=== PATIENT | male | born 1950 | race Caucasian/White ===

== ENCOUNTER 2016-07-05 07:43 | Day surgery (SDC) | payer OTHER ==
[~2016-07-05] VITALS: Ht 177.8 cm; Wt 84.1 kg
[~2016-07-05 07:43] MED LIST: 24 HOUR ALLER15.8 ML BOTH NARES; 24HOUR ALLERGY10 MG PO; AMLODIPINE BESYL5 MG PO; AMOXICILLIN875 MG PO; ANTIVERT12.5 MG PO; ANTIVERT25 MG PO; ASPIR 8181 M1 PO; ASPIRIN325 MG PO; ASPIRIN81 M2 PO; ATORVASTATIN CA20 MG PO; AUGMENTIN875 MG PO; AVENTYL,PAMELOR10 MG PO; B COMPLETE1 EACH PO; B-121000 MC2 PO; BACLOFEN10 MG PO; BLOOD PRESSURE; CLINDAMYCIN HC300 MG PO; CLOPIDOGREL75 MG PO; CYANOCOBALAM1000 MCG PO; CYCLOBENZAPRINE10 MG PO; DOXYCYCLINE HY100 MG PO; Ecotrin PO; FLEXERIL10 MG PO; FLONASE ALLERG9.9 ML BOTH NARES; FLONASE16 G1 BOTH NARES; FLONASE16 G1 RIGHT NARE; GABAPENTIN300 MG PO; HYDROCHLOROTH12.5 M3 PO; IBUPROFEN600 MG PO; LIDOCAINE700 MG TD; LIDODERM 5% P1 PATCH TD; LIPITOR20 MG; LIPITOR20 MG PO; MECLIZINE HCL25 MG PO; MOTRIN600 MG PO; NAPROXEN500 M1 PO; NORVASC5 MG PO; OXYCODONE-APAP1 EAC6 PO; PERCOCET 5/31 TABLET PO; PERCOCET 7.51 TABLET PO; PLAVIX75 MG PO; PREDNISONE20 MG PO; PROAIR HFA8.5 GM IH; Remove Lidoderm Patch TD; TYLENOL WITH C1 EACH PO; Ultram PO; VALTREX50 MG/ML PO; VITAMIN B-12500 MC3 PO; VITAMIN B12 100MCG PO; Zestril,Prinivil PO
== END 2016-07-05 10:00 | disposition home or self-care (01) ==
LOC: PAIN 07:43 → SDC 08:30 → PAIN 10:00
PROC: 015B3ZZ Destruction of Lumbar Nerve, Percutaneous Approach (ICD-10-PCS; principal; 2016-07-05)
DX: M47.896 Other spondylosis, lumbar region (principal); M51.26 Other intervertebral disc displacement, lumbar region; M54.16 Radiculopathy, lumbar region; M46.1 Sacroiliitis, not elsewhere classified; M79.1 Myalgia; M48.06 Spinal stenosis, lumbar region; M50.30 Other cervical disc degeneration, unspecified cervical region; Z79.899 Other long term (current) drug therapy
CPT/HCPCS: J1030; J2250; J3010; S0020

== ENCOUNTER 2016-07-14 01:20 | Observation (INO) | payer OTHER ==
[~2016-07-14] VITALS: Ht 177.8 cm; Wt 98.5 kg
[2016-07-14 02:05] LABS: HEMATOCRIT 43.9 % (38.0-50.0); MCV 90.7 FL (86-99); MEAN PLAT.VOLUME 9.9 uM^3 (9.0-12.4); PLATELET COUNT 448 K/uL (156-360); RBC DIS.WIDTH-CV 12.9 % (11.8-14.6); RBC DIS.WIDTH-SD 41.5 % (39-53); RED BLOOD COUNT 4.84 M/uL (4.00-5.50); WHITE BLOOD COUNT 9.8 K/uL (4.1-10.2)
[2016-07-14 02:10] LABS: CHLORIDE 107 mEq/L (99-109); POTASSIUM 3.6 mEq/L (3.7-5.4); SODIUM 140 mEq/L (136-147)
[2016-07-14 02:12] LABS: GLUCOSE 145 mg/dL (70-99)
[2016-07-14 02:13] LABS: ANION GAP 9 MEQ/L (2-14)
[2016-07-14 02:15] LABS: GFR ESTIMATE (CALCULATED) > 59 mL/min/
[2016-07-14 02:16] LABS: UREA NITROGEN (BUN) 10 mg/dL (9-23)
[2016-07-14 02:20] LABS: TROP-I INTERPRETATION NEGATIVE; TROPONIN-I < 0.01 ng/mL (0.0-0.30)
[2016-07-14 08:24] LABS: HDL CHOLESTEROL 60 MG/DL (Desirable>=40); LDL CHOLESTEROL 47 mg/dL (Desirable<100); NON-HDL CHOLESTEROL 53 mg/dL (Desirable<160); TOTAL CHOLESTEROL 113 mg/dL (Desirable<200); TRIGLYCERIDES 31 MG/DL (Normal: <150)
[2016-07-14 08:38] LABS: TROP-I INTERPRETATION NEGATIVE; TROPONIN-I < 0.01 ng/mL (0.0-0.30)
[2016-07-14 08:49] VITALS: BP 161/80
[2016-07-14 11:43] LABS: INFLUENZA A VIRAL ANTIGEN NEGATIVE; INFLUENZA B VIRAL ANTIGEN NEGATIVE
[2016-07-14 12:45] VITALS: BP 155/75
[2016-07-14 16:00] LABS: TROP-I INTERPRETATION NEGATIVE; TROPONIN-I < 0.01 ng/mL (0.0-0.30)
[2016-07-14] MEDS ORDERED: NORVASC5 MG PO (16:22)
[2016-07-14 16:46] VITALS: BP 145/60
[2016-07-14] MEDS ORDERED: BUTALB-APAP-CA1 EACH PO ×3 (19:48→19:53)
== END 2016-07-14 21:25 | disposition home or self-care (01) ==
LOC: EME 01:20 → EDOF 03:05 → 5WEST 07:09
PROVIDERS: Hospitalist; Physician Assistant Medical
DX: R07.89 Other chest pain (principal); I10 Essential (primary) hypertension; G43.909 Migraine, unspecified, not intractable, without status migrainosus; R20.0 Anesthesia of skin; I71.2 Thoracic aortic aneurysm, without rupture; J44.9 Chronic obstructive pulmonary disease, unspecified; E78.5 Hyperlipidemia, unspecified; M19.90 Unspecified osteoarthritis, unspecified site; G89.29 Other chronic pain; Z79.891 Long term (current) use of opiate analgesic; Z87.828 Personal history of other (healed) physical injury and trauma; F10.21 Alcohol dependence, in remission; Z87.891 Personal history of nicotine dependence; Z82.3 Family history of stroke; Z82.49 Family history of ischemic heart disease and other diseases of the circulatory system
CPT/HCPCS: 70450; 71020; 80048; 80061; 84484; 85027; 87502; 93005; 99202; 99281; 99285; G0378; J1650

== ENCOUNTER 2016-08-25 12:45 | Day surgery (SDC) | payer OTHER ==
[~2016-08-25] VITALS: Ht 177.8 cm; Wt 84.0 kg
[~2016-08-25 12:45] MED LIST changes: +BUTALB-APAP-CA1 EACH PO; +FIORICET 50-301 EACH PO
== END 2016-08-25 14:36 | disposition home or self-care (01) ==
LOC: PAIN 12:45 → SDC 13:45 → PAIN 13:45
DX: M47.897 Other spondylosis, lumbosacral region (principal); M51.26 Other intervertebral disc displacement, lumbar region; M54.16 Radiculopathy, lumbar region; F41.1 Generalized anxiety disorder; M46.1 Sacroiliitis, not elsewhere classified; I10 Essential (primary) hypertension; M79.1 Myalgia
CPT/HCPCS: J1030; J2250; J3010; S0020

== ENCOUNTER 2016-10-16 00:15 | Emergency (ER) | payer OTHER ==
[~2016-10-16] VITALS: Ht 177.8 cm; Wt 91.6 kg
[2016-10-16 01:12] LABS: MCH 29.4 PG (29.0-34.0); RBC DIS.WIDTH-CV 13.1 % (11.8-14.6); RED BLOOD COUNT 4.83 M/uL (4.00-5.50)
[2016-10-16 01:24] LABS: CHLORIDE 107 mEq/L (99-109); POTASSIUM 3.9 mEq/L (3.7-5.4); SODIUM 141 mEq/L (136-147)
[2016-10-16 01:26] LABS: GLUCOSE 99 mg/dL (70-99)
[2016-10-16 01:27] LABS: ANION GAP 11 MEQ/L (2-14)
[2016-10-16 01:28] LABS: TOTAL BILIRUBIN 0.7 mg/dL (0.0-1.0)
[2016-10-16 01:29] LABS: ALKALINE PHOSPHATASE 93 IU/L (3-129)
[2016-10-16 01:30] LABS: GFR ESTIMATE (CALCULATED) > 59 mL/min/
[2016-10-16 01:31] LABS: D-DIMER ELISA 0.34 mg/L FEU (< 0.57); UREA NITROGEN (BUN) 14 mg/dL (9-23)
[2016-10-16 01:34] LABS: TROP-I INTERPRETATION NEGATIVE; TROPONIN-I < 0.01 ng/mL (0.0-0.30)
[2016-10-16] MEDS ORDERED: AUGMENTIN875 MG PO (02:12)
[2016-10-16] MEDS ORDERED: ALLEGRA ALLERG180 MG PO (02:13)
[2016-10-16] MEDS ORDERED: FLONASE16 G1 BOTH NARES (02:13)
[2016-10-16 02:22] VITALS: BP 138/89
[2016-10-16 02:39] LABS: MEAN PLAT.VOLUME 9.7 uM^3 (9.0-12.4); PLAT.SUFFICIENCY ADEQUATE; PLATELET COUNT 372 K/uL (156-360)
== END 2016-10-16 02:23 | disposition home or self-care (01) ==
LOC: EME 00:15
PROVIDERS: Physician Assistant
DX: J32.9 Chronic sinusitis, unspecified (principal); R42 Dizziness and giddiness; E78.5 Hyperlipidemia, unspecified; R56.9 Unspecified convulsions; Z86.73 Personal history of transient ischemic attack (TIA), and cerebral infarction without residual deficits; Z79.82 Long term (current) use of aspirin; Z87.891 Personal history of nicotine dependence
CPT/HCPCS: 70450; 71010; 80053; 81003; 84484; 85027; 85379; 93005; 99281; 99284

== ENCOUNTER 2016-11-24 08:40 | Observation (INO) | payer OTHER ==
[~2016-11-24] VITALS: Ht 177.8 cm; Wt 84.0 kg
[~2016-11-24 08:40] MED LIST changes: +ALLEGRA ALLERG180 MG PO
[2016-11-24 09:09] LABS: EOSINOPHIL (%) 2.9 % (0-5); EOSINOPHIL COUNT 0.2 K/uL (0-0.3); HEMATOCRIT 44.4 % (38.0-50.0); IMMATURE GRANULOCYTE (%) 0.2 % (0.0-0.7); INSTRUMENT ABS NEUTROPHIL CT 3.1 K/uL; LYMPHOCYTE COUNT 2.7 K/uL (1.0-2.8); MCH 29.3 PG (29.0-34.0); MCHC 32.7 G/DL (30.0-36.0); MCV 89.7 FL (86-99); MEAN PLAT.VOLUME 10.2 uM^3 (9.0-12.4); MONOCYTE (%) 6.8 % (3-12); MONOCYTE COUNT 0.4 K/uL (0-0.8); NEUTROPHIL (%) 47.6 % (45-76); NEUTROPHIL COUNT 3.1 K/uL (1.8-6.4); PLATELET COUNT 366 K/uL (156-360); RBC DIS.WIDTH-CV 12.8 % (11.8-14.6); RBC DIS.WIDTH-SD 41.9 % (39-53); RED BLOOD COUNT 4.95 M/uL (4.00-5.50); WHITE BLOOD COUNT 6.5 K/uL (4.1-10.2)
[2016-11-24 09:20] LABS: AMYLASE 89 IU/L (1-118); CHLORIDE 108 mEq/L (99-109); POTASSIUM 3.7 mEq/L (3.7-5.4); SODIUM 140 mEq/L (136-147)
[2016-11-24 09:22] LABS: GLUCOSE 105 mg/dL (70-99)
[2016-11-24 09:23] LABS: ANION GAP 10 MEQ/L (2-14)
[2016-11-24 09:25] LABS: SERUM ETHYL ALCOHOL < 10 mg/dL
[2016-11-24 09:26] LABS: GFR ESTIMATE (CALCULATED) > 59 mL/min/
[2016-11-24 09:27] LABS: UREA NITROGEN (BUN) 9 mg/dL (9-23)
[2016-11-24 09:29] LABS: LIPASE 20 U/L (1.0-51.0)
[2016-11-24 09:59] LABS: ADD MIUA? NO; BILIRUBIN NEGATIVE; BLOOD NEGATIVE; COLOR STRAW ((YELLOW)); GLUCOSE (STRIP) NEGATIVE; KETONES NEGATIVE; LEUKOCYTES NEGATIVE; NITRITE NEGATIVE; PROTEIN (STRIP) NEGATIVE; SPECIFIC GRAVITY 1.012 (1.000-1.030); UCUL ADDED? NO; UROBILINOGEN 0.2 MG/DL (0.2-1.0)
[2016-11-24] MEDS ORDERED: LEVAQUIN500 MG PO (09:59)
[2016-11-24 10:03] LABS: AMPHETAMINE NEGATIVE (500 ng/mL); BARBITURATES NEGATIVE (200 ng/mL); BENZODIAZEPINES NEGATIVE (150 ng/mL); COCAINE NEGATIVE (150 ng/mL); INTERNAL CONTROLS VALID? YES; METHADONE NEGATIVE (200 ng/mL); METHAMPHETAMINE NEGATIVE (500 ng/mL); OPIATES (MORPHINE) NEGATIVE (100 ng/mL); OXYCODONE PRESUMPTIVE POSITIVE (100 ng/mL); PHENCYCLIDINE NEGATIVE (25 ng/mL); PROPOXYPHENE NEGATIVE (300 ng/mL); THC CANNABINOIDS NEGATIVE (50 ng/mL); TRICYCLIC ANTIDEPRESSANTS NEGATIVE (300 ng/mL)
[2016-11-24 11:44] LABS: TROP-I INTERPRETATION NEGATIVE; TROPONIN-I < 0.01 ng/mL (0.0-0.30)
[2016-11-24 12:12] LABS: HDL CHOLESTEROL 52 MG/DL (Desirable>=40); LDL CHOLESTEROL 40 mg/dL (Desirable<100); NON-HDL CHOLESTEROL 48 mg/dL (Desirable<160); TOTAL CHOLESTEROL 100 mg/dL (Desirable<200); TRIGLYCERIDES 41 MG/DL (Normal: <150)
[2016-11-24 12:26] LABS: Estimated Average Glucose 114 mg/dL (70-123); HEMOGLOBIN A1c (GLYCOHEMOGLOB) 5.6 % HGB (Below 5.7)
[2016-11-24 17:06] LABS: TROP-I INTERPRETATION NEGATIVE; TROPONIN-I < 0.01 ng/mL (0.0-0.30)
[2016-11-24 17:49] VITALS: BP 130/76
[2016-11-24 20:01] VITALS: BP 136/72
[2016-11-24 22:54] LABS: TROP-I INTERPRETATION NEGATIVE; TROPONIN-I < 0.01 ng/mL (0.0-0.30)
[2016-11-24 23:52] VITALS: BP 101/62
[2016-11-25 03:46] VITALS: BP 106/64
[2016-11-25 07:36] VITALS: BP 121/73
[2016-11-25 11:37] VITALS: BP 122/64
[2016-11-25 15:54] VITALS: BP 109/79
== END 2016-11-25 17:17 | disposition home or self-care (01) ==
LOC: EME → EDBD 08:40 → EME 08:40 → EDSEX 08:40 → 5SOUTH 09:37 → EDOF 09:37 → 5SOUTH 09:37
PROVIDERS: Emergency Medicine; Internal Medicine
DX: M62.81 Muscle weakness (generalized) (principal); R29.810 Facial weakness; R20.0 Anesthesia of skin; G43.109 Migraine with aura, not intractable, without status migrainosus; I71.2 Thoracic aortic aneurysm, without rupture; J44.9 Chronic obstructive pulmonary disease, unspecified; I10 Essential (primary) hypertension; E78.5 Hyperlipidemia, unspecified; G89.29 Other chronic pain; M19.90 Unspecified osteoarthritis, unspecified site; Z87.891 Personal history of nicotine dependence; F10.21 Alcohol dependence, in remission
CPT/HCPCS: 70450; 70551; 80048; 80061; 81003; 82150; 83036; 83690; 84443; 84484; 85025; 86900; 86901; 93005; 93306; 93880; 99281; 99285; G0378; G0480; J1650; J2405

== ENCOUNTER 2017-03-13 15:21 | Emergency (ER) | payer OTHER ==
[~2017-03-13] VITALS: Ht 177.8 cm; Wt 84.1 kg
[~2017-03-13 15:21] MED LIST changes: +LEVAQUIN500 MG PO
[2017-03-13 16:33] LABS: HEMATOCRIT 50.1 % (38.0-50.0); MCH 29.9 PG (29.0-34.0); MCHC 33.1 G/DL (30.0-36.0); MCV 90.3 FL (86-99); MEAN PLAT.VOLUME 9.7 uM^3 (9.0-12.4); PLATELET COUNT 411 K/uL (156-360); RBC DIS.WIDTH-CV 12.4 % (11.8-14.6); RBC DIS.WIDTH-SD 40.7 % (39-53); RED BLOOD COUNT 5.55 M/uL (4.00-5.50); WHITE BLOOD COUNT 8.3 K/uL (4.1-10.2)
[2017-03-13 16:46] LABS: CHLORIDE 104 mEq/L (99-109); POTASSIUM 4.4 mEq/L (3.7-5.4); SODIUM 140 mEq/L (136-147)
[2017-03-13 16:48] LABS: GLUCOSE 89 mg/dL (70-99)
[2017-03-13 16:49] LABS: ANION GAP 14 MEQ/L (2-14)
[2017-03-13 16:52] LABS: GFR ESTIMATE (CALCULATED) > 59 mL/min/; UREA NITROGEN (BUN) 16 mg/dL (9-23)
[2017-03-13 16:53] LABS: TROP-I INTERPRETATION NEGATIVE; TROPONIN-I < 0.01 ng/mL (0.0-0.30)
[2017-03-13] MEDS ORDERED: VENTOLIN HFA18 GM IH (20:27)
[2017-03-13] MEDS ORDERED: TESSALON PERLE100 MG PO (20:27)
[2017-03-13] MEDS ORDERED: PREDNISONE20 MG PO (20:27)
[2017-03-13 21:21] VITALS: BP 145/79
== END 2017-03-13 21:22 | disposition home or self-care (01) ==
LOC: EME 15:21 → EXP 15:21
DX: J32.9 Chronic sinusitis, unspecified (principal); Z86.73 Personal history of transient ischemic attack (TIA), and cerebral infarction without residual deficits; I10 Essential (primary) hypertension; E78.5 Hyperlipidemia, unspecified; Z79.82 Long term (current) use of aspirin; Z87.891 Personal history of nicotine dependence
CPT/HCPCS: 70450; 71020; 80048; 84484; 85027; 93005; 94640; 99281; 99284; J7512

== ENCOUNTER 2017-04-20 07:24 | Day surgery (SDC) | payer OTHER ==
[~2017-04-20] VITALS: Ht 177.8 cm; Wt 83.9 kg
[~2017-04-20 07:24] MED LIST changes: -ASPIRIN81 M2 PO; +LO-DOSE ASPIRIN81 M1 PO; +TESSALON PERLE100 MG PO; +VENTOLIN HFA18 GM IH
== END 2017-04-20 09:37 | disposition home or self-care (01) ==
LOC: PAIN 07:24
DX: M47.26 Other spondylosis with radiculopathy, lumbar region (principal); M51.16 Intervertebral disc disorders with radiculopathy, lumbar region; M54.5 Low back pain; G89.29 Other chronic pain; M48.061 Spinal stenosis, lumbar region without neurogenic claudication; M79.1 Myalgia; I10 Essential (primary) hypertension; G62.9 Polyneuropathy, unspecified; Z87.891 Personal history of nicotine dependence; Z79.891 Long term (current) use of opiate analgesic; Z79.82 Long term (current) use of aspirin; Z86.73 Personal history of transient ischemic attack (TIA), and cerebral infarction without residual deficits
CPT/HCPCS: J1100; J2250; J3010

== ENCOUNTER 2017-10-15 03:47 | Observation (INO) | payer OTHER ==
[~2017-10-15] VITALS: Ht 177.8 cm; Wt 90.5 kg
[~2017-10-15 03:47] MED LIST changes: -ANTIVERT12.5 MG PO; +NAPROXEN500 MG PO
[2017-10-15 07:01] LABS: HEMATOCRIT 42.4 % (38.0-50.0); HEMOGLOBIN 14.1 G/DL (12.5-16.6); MCH 30.5 PG (29.0-34.0); MCHC 33.3 G/DL (30.0-36.0); MCV 91.6 FL (86-99); PLATELET COUNT 291 K/uL (156-360); RBC DIS.WIDTH-CV 12.9 % (11.8-14.6); RBC DIS.WIDTH-SD 42.7 % (39-53); RED BLOOD COUNT 4.63 M/uL (4.00-5.50); WHITE BLOOD COUNT 7.1 K/uL (4.1-10.2)
[2017-10-15 07:29] LABS: CHLORIDE 110 MEQ/L (99-109); CREATININE 0.8 MG/DL (0.6-1.3); GFR ESTIMATE (CALCULATED) > 59 mL/min/ (58.99-99999); GLUCOSE 120 mg/dL (70-99); POTASSIUM 4.3 MEQ/L (3.7-5.4); SODIUM 140 MEQ/L (136-147); UREA NITROGEN (BUN) 16 mg/dL (9-23)
[2017-10-15 08:06] LABS: APPEARANCE CLEAR ((CLEAR)); BILIRUBIN NEGATIVE; BLOOD NEGATIVE; COLOR STRAW ((YELLOW)); GLUCOSE (STRIP) NEGATIVE; KETONES NEGATIVE; LEUKOCYTES NEGATIVE; NITRITE NEGATIVE; PROTEIN (STRIP) NEGATIVE; SPECIFIC GRAVITY 1.014 (1.000-1.030); UROBILINOGEN 0.2 MG/DL (0.2-1.0)
[2017-10-15] MEDS ORDERED: NEURONTIN300 MG PO (08:47)
[2017-10-15] MEDS ORDERED: LOPRESSOR25 MG PO (08:48)
[2017-10-15] MEDS ORDERED: PRAVACHOL20 MG PO (08:49)
[2017-10-15 09:27] VITALS: BP 142/75
[2017-10-15 11:21] VITALS: BP 149/75
[2017-10-15 19:52] VITALS: BP 140/83
[2017-10-15 23:26] VITALS: BP 100/50
[2017-10-16 07:28] VITALS: BP 115/68
[2017-10-16] MEDS ORDERED: PROPRANOLOL HCL80 MG PO (09:37)
[2017-10-16] MEDS ORDERED: AMITRIPTYLINE H10 MG PO (09:37)
== END 2017-10-16 10:34 | disposition home or self-care (01) ==
LOC: EME 03:47 → EDOF 08:05 → 5WEST 08:05 → ENRESERV 08:10 → 5WEST 09:22
PROVIDERS: Physician Assistant
DX: H81.10 Benign paroxysmal vertigo, unspecified ear (principal); G43.109 Migraine with aura, not intractable, without status migrainosus; Z86.73 Personal history of transient ischemic attack (TIA), and cerebral infarction without residual deficits; I10 Essential (primary) hypertension; E78.5 Hyperlipidemia, unspecified; J44.9 Chronic obstructive pulmonary disease, unspecified; Z87.891 Personal history of nicotine dependence; G89.29 Other chronic pain; M19.90 Unspecified osteoarthritis, unspecified site; Z87.828 Personal history of other (healed) physical injury and trauma; Z90.49 Acquired absence of other specified parts of digestive tract; Z82.3 Family history of stroke; Z82.49 Family history of ischemic heart disease and other diseases of the circulatory system; F10.21 Alcohol dependence, in remission; Z88.8 Allergy status to other drugs, medicaments and biological substances
CPT/HCPCS: 70450; 80048; 81003; 85027; 93005; 99281; 99285; G0378; G8978 GP CH; G8979 GP CH; G8980 GP CH; G8987 GO CH; G8988 GO CH; G8989 GO CH; J0780; J1100; J1650; J7030

== ENCOUNTER → 2017-11-14 | Outpatient (CLI) | payer OTHER ==
[~2017-11-14] MED LIST changes: +AMITRIPTYLINE H10 MG PO; +LOPRESSOR25 MG PO; +NEURONTIN300 MG PO; +PRAVACHOL20 MG PO; +PROPRANOLOL HCL80 MG PO
== END | disposition home or self-care (01) ==
DX: M17.12 Unilateral primary osteoarthritis, left knee (principal); R26.2 Difficulty in walking, not elsewhere classified; M25.562 Pain in left knee; M25.662 Stiffness of left knee, not elsewhere classified; M62.81 Muscle weakness (generalized); Z74.1 Need for assistance with personal care
CPT/HCPCS: 97161 GP; 97165 GO; 97530 GP; 97535 GO; G8978 GP; G8979 GP; G8980 GP; G8987 GO; G8988 GO; G8989 GO

== ENCOUNTER 2017-12-17 20:51 | Inpatient (IN) | payer OTHER ==
[~2017-12-17] VITALS: Ht 177.8 cm; Wt 88.2 kg
[2017-12-18] MEDS ORDERED: LOPRESSOR25 MG PO (10:13)
[2017-12-18 10:15] VITALS: BP 147/71
[2017-12-18] MEDS ORDERED: PERCOCET 7.51 TABLET PO (11:08)
[2017-12-18 17:23] VITALS: BP 148/68
[2017-12-18 19:43] VITALS: BP 107/58
[2017-12-18 21:45] VITALS: BP 126/56
[2017-12-19 00:12] VITALS: BP 118/58
[2017-12-19 04:15] VITALS: BP 93/62
[2017-12-19 06:36] LABS: CHLORIDE 106 MEQ/L (99-109); CREATININE 0.9 MG/DL (0.6-1.3); GFR ESTIMATE (CALCULATED) > 59 mL/min/ (58.99-99999); GLUCOSE 85 mg/dL (70-99); POTASSIUM 4.7 MEQ/L (3.7-5.4); SODIUM 142 MEQ/L (136-147); UREA NITROGEN (BUN) 10 mg/dL (9-23)
[2017-12-19 08:01] VITALS: BP 115/57
[2017-12-19 11:52] VITALS: BP 100/59
[2017-12-19 15:33] VITALS: BP 105/62
[2017-12-19 20:17] VITALS: BP 135/63
[2017-12-20 00:30] VITALS: BP 104/55
[2017-12-20 04:29] VITALS: BP 105/67
[2017-12-20] MEDS ORDERED: PERCOCET 10/1 TABLET PO (07:46)
[2017-12-20 08:14] VITALS: BP 111/67
[2017-12-20] MEDS ORDERED: ELIQUIS2.5 MG PO (09:52)
[2017-12-20 12:17] VITALS: BP 113/59
== END 2017-12-20 15:35 | DRG 470 ==
LOC: ENRESERV 20:51 → 2SOUTH 12-18 09:15 → 3WEST 12-18 16:56
PROVIDERS: Orthopaedic Surgery
PROC: 0SRD0J9 Replacement of Left Knee Joint with Synthetic Substitute, Cemented, Open Approach (ICD-10-PCS; principal; 2017-12-18)
DX: M17.12 Unilateral primary osteoarthritis, left knee (principal); I10 Essential (primary) hypertension; E78.2 Mixed hyperlipidemia; G89.29 Other chronic pain; Z96.642 Presence of left artificial hip joint; Z87.891 Personal history of nicotine dependence; Z79.82 Long term (current) use of aspirin; Z86.73 Personal history of transient ischemic attack (TIA), and cerebral infarction without residual deficits
CPT/HCPCS: 80048; C1713; J0131; J0690; J1885; J2250; J2405; J2795; J7050; J7120